=== PATIENT | male | born 1980 | race Asian ===

== ENCOUNTER 2020-04-04 16:05 | Outpatient (CLI) | payer BC ==
--- NOTE | 2020-04-04 16:20 | RAD ---
EXAM: CHEST TWO VIEWS 04/04/2020 4:17 PM HISTORY: Unexplained weight loss COMPARISON: None. FINDINGS: Lungs: No acute airspace consolidation. Heart: Normal in size and contour. Pulmonary Vessels: Normal. Costophrenic Angles: Clear. Pneumothorax: None. Osseous Structures: Intact. Additional Findings: None. IMPRESSION: No significant acute intrathoracic disease.
== END 2020-04-04 16:06 | disposition home or self-care (01) ==
LOC: BICRAD 16:05
PROVIDERS: ATTEND Physician Assistant
DX: R63.4 Abnormal weight loss (principal)
CPT/HCPCS: 36415; 71046; 80074; 81001; 82150; 83690; 84443; 85652; 86140; 87389